=== PATIENT | male | born 1990 | race African-American/Black ===

== ENCOUNTER 2019-06-16 12:55 | Emergency (ER) | payer SELFPAY ==
[2019-06-16 13:16] VITALS: BP 131/90
--- NOTE | 2019-06-16 13:22 | UC ---
Skin Complaint HPI - HPI Summary HPI Summary: 29 y/o male presents to the urgent care c/o left gluteus w/ a painful abscess for the past 2 days. Another discrete boil appeared yesterday in the RT side fo his groin. Pt reports He had Hx of axillary abscess in the past, but never had one in his buttocks. He has tried some home made remedies w/ garlic w/o any improvement. He noticed midl yellowish drainage yesterday in the one on the buttocks. Pain at touch is 9/10. He experienced fever or 99.5F last night. He has taken Tylenol and Ibuprofen PO to alleviate symptoms. Nothing today. Pt denies Hx of MRS, fever today, dizziness, SOB, cough, chest pain,abdominal pain , N/V/D. - History of Current Complaint Chief Complaint: UCSkin Time Seen by Provider: 06/16/19 13:21 Stated Complaint: SKIN COMPLAINT Hx Obtained From: Patient Onset/Duration: Gradual Onset, Lasting Days - 2 days, Still Present, Worse Since - today Skin Exposure Onset/Duration: Days Ago - 2 days Timing: Constant Onset Severity: Mild Current Severity: Moderate Pain Intensity: 9 - left gluteus Pain Scale Used: 0-10 Numeric Location: Discrete - left gluteus abscess, and RT side of groin w/ a small boil Character: Swelling, Redness, Raised, Painful Aggravating Factor(s): Touch Alleviating Factor(s): Heat, OTC Meds - tylenol the foirst day and Ibuprofen last night Associated Signs & Symptoms: Positive: Rash - left gluteus w/ rednes and yellowish discharge, Drainage - yellowish, Tenderness. Negative: Fever, Chills Related History: Other: - He has Hx of boils in his axillas, but never in the gluteus - Allergy/Home Medications Allergies/Adverse Reactions: Allergies Allergy/AdvReac Type Severity Reaction Status Date / Time No Known Allergies Allergy Verified 06/16/19 13:16 Home Medications: Home Medications Bacitracin OINTMENT* 1 applic TOPICAL TID #1 tube 06/16/19 [Rx] Ibuprofen TAB* [Motrin TAB* 800 MG] 800 mg PO Q6H PRN #30 tab 06/16/19 [Rx] Sulfamethox/Trimethoprim DS* [Bactrim DS 800/160 TAB*] 1 tab PO BID #20 tab [Rx] PMH/Surg Hx/FS Hx/Imm Hx Previously Healthy: Yes - Pt denies PMHX - Surgical History Surgical History: None - Family History Known Family History: Positive: Hypertension, Diabetes - Social History Occupation: Employed Full-time Lives: With Family Alcohol Use: None Substance Use Type: None Smoking Status (MU): Never Smoked Tobacco Review of Systems All Other Systems Reviewed And Are Negative: Yes Constitutional: Positive: Negative Skin: Positive: Rash - redness and pailful abscess in the left buttocks and left side of groin Eyes: Positive: Negative ENT: Positive: Negative Respiratory: Positive: Negative Cardiovascular: Positive: Negative Gastrointestinal: Positive: Negative Genitourinary: Positive: Negative Motor: Positive: Negative Neurovascular: Positive: Negative Musculoskeletal: Positive: Other: - left glueus w/ abscess Neurological/Mental Status: Positive: Negative Psychological: Positive: Negative Is Patient Immunocompromised?: No Physical Exam - Summary Physical Exam Summary: Vital Signs Reviewed: Yes General: well developed, well nourished male sitting in the examining table w/o any apparent distress Eye Exam: Normal Eyes: Positive: Conjunctiva Clear - PERRLA, EOMI, fundi grossly normal ENT: Positive: Normal ENT inspection, Hearing grossly normal, Pharynx normal, TMs normal Neck: Positive: Supple, Nontender, No Lymphadenopathy Respiratory: Positive: Chest non-tender, Lungs clear, Normal breath sounds, No respiratory distress Cardiovascular: Positive: RRR, No Murmur, Pulses Normal, Brisk Capillary Refill Abdomen Description: Positive: Nontender, No Organomegaly, Soft. Negative: CVA Tenderness (R), CVA Tenderness (L) Bowel Sounds: Positive: Present Musculoskeletal: Positive: Strength Intact, ROM Intact, No Edema Neurological: Positive: Alert, Muscle Tone Normal Psychological Exam: Normal Skin: Positive: LF gluteus w/ an erythematous pustule that is indurated and fluctuant, tender to palpation, swollen, and warm to touch about 2.0x 2.0cm in size. Another smaller discrete boil in the RT side of the suprapubic area w/ mild erythema and drainage observed. Sensation is intact, capillary refill WNL, reflexes WNL Triage Information Reviewed: Yes Vital Signs: Initial Vital Signs Temp 97.8 F 06/16/19 13:11 Pulse 100 06/16/19 13:11 Resp 18 06/16/19 13:11 BP 131/90 06/16/19 13:11 Pulse Ox 100 06/16/19 13:11 Course/Dx - Course Course Of Treatment: 29 y/o male presents to the urgent care c/o left gluteus w/ a painful abscess for the past 2 days. Another discrete boil appeared yesterday in the RT side fo his groin. Pt reports He had Hx of axillary abscess in the past, but never had one in his buttocks. He has tried some home made remedies w/ garlic w/o any improvement. He noticed midl yellowish drainage yesterday in the one on the buttocks. Pain at touch is 9/10. He experienced fever or 99.5F last night. He has taken Tylenol and Ibuprofen PO to alleviate symptoms. Nothing today. Pt denies Hx of MRS, fever today, dizziness, SOB, cough, chest pain,abdominal pain , N/V/D. Hx obtained. Pt hemodynamically stable, A&OX3, VS: WNL. Pt w/ a left gluteal abscess and a discrete boil in the RT side opf suprapubicv are on examination. I&D of abscess procedure for the left gluteus abscess:The procedure was explained and consent obtained. [place] protocol performed. The wound was anesthetized with 4mL of [place] 1% with good anesthesia. Sterile drape and prep were done. The fluctuant center was incised with #11 blade scalpel. A moderate amount of caseous material was expressed . wound cultures obtained and sent to lab to r/o MRSA. The wound was probed for loculated areas and irrigated with normal saline. The wound was packed loosely with wick or left open. Bacitracin topical ointment applied and wound covered with sterile dressing. Also the boil cleaned w/ iodine swabs and Bacitracin applied over. The patient tolerated the procedure well. Pt Rx Bactrim PO, Bacitracin oint and ibuprofen PO for pain. Advised to return to the urgent care for wound check up. Pt givne Ibuprofen PO by the nurse for pain. Pt tolerated well medication and felt better. Pt advised fever develops and pain increase despite ABX to go immediately to the ER or return to the urgent care for further management. Pt's BP is elevated today and advised to decrease salt in diet, monitor BP and f/u with PCP if BP continues to be elevated for further management. Pt understood and agreed with D/C instructions. Left the clinic ambulating A&OX3. - Differential Diagnoses - Skin Complaint Differential Diagnoses: Abscess, Cellulitis, Contact Dermatitis, Local Allergic Reaction, MRSA - Diagnoses Provider Diagnosis: Abscess, gluteal, left, Boil of inguinal region, Elevated BP without diagnosis of hypertension Discharge ED - Sign-Out/Discharge Documenting (check all that apply): Patient Departure - D/C home All imaging exams completed and their final reports reviewed: No Studies - Discharge Plan Condition: Stable Disposition: HOME Prescriptions: Bacitracin OINTMENT* 1 applic TOPICAL TID #1 tube Ibuprofen TAB* [Motrin TAB* 800 MG] 800 mg PO Q6H PRN #30 tab PRN Reason: moderate pain Sulfamethox/Trimethoprim DS* [Bactrim DS 800/160 TAB*] 1 tab PO BID #20 tab Patient Education Materials: Abscess (ED) Referrals: [facility] [Outside] - 2 Days Additional Instructions: 1-Please take full course of antibiotic to avoid resistance. Keep wound clean and dry with a sterile dressing. Apply bacitracin topical as directed 2- F/u wound check up in 2 days here at the urgent care or your PCP for removal of packing 3-Take Ibuprofen PO q6-8hrs prn for pain or swelling. 4-If you develop fever or redness increases despite antibiotic please return to the Urgent care. 5-Wound culture sent to lab, if any abnormal result you will receive a call from us. 6- Your BP is elevated today and advised to decrease salt in diet, monitor BP and f/u with PCP for further management. - Billing Disposition and Condition Condition: STABLE Disposition: Home
[2019-06-16] MEDS ORDERED: Lidocaine 2% PF * 5 ML VIAL INJ ONE (13:38)
[2019-06-16] MEDS ORDERED: Ibuprofen TAB* 400 MG PO ONE (14:27)
--- NOTE | 2019-06-16 22:34 | UC ---
- Progress Note Progress Note: Cx pending. Rx bactrim ds. Course/Dx - Diagnoses Provider Diagnoses: Abscess, gluteal, left, Boil of inguinal region, Elevated BP without diagnosis of hypertension Discharge ED - Sign-Out/Discharge Documenting (check all that apply): Post-Discharge Follow Up All imaging exams completed and their final reports reviewed: No Studies - Discharge Plan Condition: Stable Disposition: HOME Prescriptions: Bacitracin OINTMENT* 1 applic TOPICAL TID #1 tube Ibuprofen TAB* [Motrin TAB* 800 MG] 800 mg PO Q6H PRN #30 tab PRN Reason: moderate pain Sulfamethox/Trimethoprim DS* [Bactrim DS 800/160 TAB*] 1 tab PO BID #20 tab Patient Education Materials: Abscess (ED) Referrals: [facility] [Outside] - 2 Days Additional Instructions: 1-Please take full course of antibiotic to avoid resistance. Keep wound clean and dry with a sterile dressing. Apply bacitracin topical as directed 2- F/u wound check up in 2 days here at the urgent care or your PCP for removal of packing 3-Take Ibuprofen PO q6-8hrs prn for pain or swelling. 4-If you develop fever or redness increases despite antibiotic please return to the Urgent care. 5-Wound culture sent to lab, if any abnormal result you will receive a call from us. 6- Your BP is elevated today and advised to decrease salt in diet, monitor BP and f/u with PCP for further management. - Billing Disposition and Condition Condition: STABLE Disposition: Home
== END 2019-06-16 14:45 | disposition home or self-care (01) ==
LOC: UCEAST 12:55
DX: L02.31 Cutaneous abscess of buttock (principal); L02.224 Furuncle of groin; R03.0 Elevated blood-pressure reading, without diagnosis of hypertension
CPT/HCPCS: 10060; 87070; 87077; 87186; 87205; 87640; 87641; 99202; A9270-GY; G0463

== ENCOUNTER 2019-06-18 13:02 | Emergency (ER) | payer SELFPAY ==
--- NOTE | 2019-06-18 13:10 | UC ---
General HPI - HPI Summary HPI Summary: here for packing removal from left buttock abscess---patient reports eyes had swollen after taking the Bactrim - History of Current Complaint Chief Complaint: UCWounds Stated Complaint: STITCH REMOVEL FROM BACK Time Seen by Provider: 06/18/19 13:09 Hx Obtained From: Patient Onset/Duration: Sudden Onset, Lasting Days - 2, Still Present Timing: Constant Onset Severity: Moderate Current Severity: Mild - Allergy/Home Medications Allergies/Adverse Reactions: Allergies Allergy/AdvReac Type Severity Reaction Status Date / Time No Known Allergies Allergy Verified 06/18/19 13:24 Home Medications: Home Medications Bacitracin OINTMENT* 1 applic TOPICAL TID #1 tube 06/16/19 [Rx Confirmed ] Ibuprofen TAB* [Motrin TAB* 800 MG] 800 mg PO Q6H PRN #30 tab 06/16/19 [Rx Confirmed 06/18/19] Cephalexin CAP* [Keflex CAP*] 500 mg PO QID #28 cap 06/18/19 [Rx] PMH/Surg Hx/FS Hx/Imm Hx Previously Healthy: Yes - Surgical History Surgical History: None - Family History Known Family History: Positive: Hypertension, Diabetes - Social History Occupation: Employed Full-time Lives: With Family Alcohol Use: None Substance Use Type: None Smoking Status (MU): Never Smoked Tobacco Review of Systems All Other Systems Reviewed And Are Negative: Yes Constitutional: Positive: Negative Skin: Positive: Other - pensil eraser size open area on left buttock with 5 cm diameter of induration--some purulent drainage Eyes: Positive: Negative ENT: Positive: Negative Respiratory: Positive: Negative Cardiovascular: Positive: Negative Gastrointestinal: Positive: Negative Genitourinary: Positive: Negative Motor: Positive: Negative Neurovascular: Positive: Negative Musculoskeletal: Positive: Negative Neurological/Mental Status: Positive: Negative Psychological: Positive: Negative Is Patient Immunocompromised?: No Physical Exam Triage Information Reviewed: Yes Appearance: Well-Appearing, No Pain Distress, Well-Nourished Vital Signs Reviewed: Yes Eye Exam: Normal Eyes: Positive: Conjunctiva Clear ENT Exam: Normal ENT: Positive: Normal ENT inspection, Hearing grossly normal, Pharynx normal. Negative: Trismus, Muffled voice, Hoarse voice Dental Exam: Normal Neck exam: Normal Neck: Positive: Supple, Nontender, No Lymphadenopathy Respiratory Exam: Normal Respiratory: Positive: Chest non-tender, No respiratory distress, No accessory muscle use Cardiovascular Exam: Normal Cardiovascular: Positive: RRR, Brisk Capillary Refill Musculoskeletal Exam: Normal Musculoskeletal: Positive: Strength Intact, ROM Intact, No Edema Neurological Exam: Normal Neurological: Positive: Alert, Muscle Tone Normal Psychological Exam: Normal Skin Exam: Other - left buttock I&D site open area with purulent drainage size of pencil eraser and 5 cm induration Skin: Positive: Other Course/Dx - Course Course Of Treatment: patient with NMRSA in wound that is resistant to bactrim ( in addition to the eye swelling) patient will d/c Bactrim and add Keflex with warm soaks compress 4-5 tomes a day and continue Ibuprofen for pain follow with pcp for BP re- check - Diagnoses Provider Diagnosis: Encounter for recheck of abscess following incision and drainage, Hypertension Discharge ED - Sign-Out/Discharge Documenting (check all that apply): Patient Departure All imaging exams completed and their final reports reviewed: No Studies - Discharge Plan Condition: Stable Disposition: HOME Prescriptions: Cephalexin CAP* [Keflex CAP*] 500 mg PO QID #28 cap Patient Education Materials: Abscess (ED), Warm Compress or Soak (ED) Referrals: [facility] [Outside] - If Needed Additional Instructions: Stop the Bactrim and change to the antibiotic I prescribed today - Billing Disposition and Condition Condition: STABLE Disposition: Home
[2019-06-18 13:24] VITALS: BP 167/88
== END 2019-06-18 13:34 | disposition home or self-care (01) ==
LOC: UCEAST 13:02
DX: L02.31 Cutaneous abscess of buttock (principal); B95.62 Methicillin resistant Staphylococcus aureus infection as the cause of diseases classified elsewhere; Z79.2 Long term (current) use of antibiotics; I10 Essential (primary) hypertension
CPT/HCPCS: 99212; G0463